=== PATIENT | male | born 1990 | race Caucasian/White ===

== ENCOUNTER 2022-08-28 01:55 | Emergency (ER) | payer OTHER ==
[2022-08-28] MEDS ORDERED: Lidocaine 1% 10 ML MDV INJECT ONE (02:14)
== END 2022-08-28 03:00 | disposition home or self-care (01) ==
LOC: JD.ED 01:55
DX: S61.211A Laceration without foreign body of left index finger without damage to nail, initial encounter (principal); W26.0XXA Contact with knife, initial encounter
CPT/HCPCS: 12001; 99282; 99283; J3490